=== PATIENT | female | born 1965 | race Caucasian/White ===

== ENCOUNTER 2023-03-08 16:21 | Outpatient (OUT) | payer BC, SELFPAY ==
--- NOTE | 2023-03-08 16:47 | XR_ITS ---
[facility] [place] [id number] Patient Name: JIMMY CLEANING MRN: [id number] date: 1965 Sex: F Assigned Patient Location: [facility] Current Patient Location: Accession/Order Number: [id number] Exam Date: 03/08/2023 16:38 Report Date: 03/09/2023 08:23 At the request of: MAYELA BURGOS Procedure: XR hip RT 2V w/ pelvis PROCEDURE: XR hip RT 2V w/ pelvis HISTORY: Pain in Right hip, M25.551 ; acute right hip pain since falling 2 weeks ago COMPARISON: None. FINDINGS: BONES:Questionable curvilinear lucency projecting through the femoral head which may represent fracture of the posterior rim of the acetabulum. Unremarkable femoral head. Mild narrowing of superior joint space consistent with degenerative changes. SOFT TISSUES:No visible soft tissue swelling. EFFUSION:None visible. OTHER: Negative. XR/XR hip RT 2V w/ pelvis IMPRESSION: 1. Possible nondisplaced fracture of the posterior rim of the right acetabulum. Follow-up with MRI of right hip if patient is able, otherwise CT of right hip. Electronically authenticated by: AGUSTÍN PATEL Date: 03/09/2023 08:23
== END 2023-03-08 16:22 | disposition home or self-care (01) ==
PROVIDERS: PCP Family Medicine; Visit Provider Nurse Practitioner Family
DX: M25.551 Pain in right hip (principal)
CPT/HCPCS: 73502

== ENCOUNTER 2023-03-09 11:30 | Outpatient (OUT) | payer BC, SELFPAY ==
--- NOTE | 2023-03-09 11:46 | CT_ITS ---
[address] [address] Patient Name: JIMMY CLEANING MRN: [id number] date: 1965 Sex: F Assigned Patient Location: CT Current Patient Location: CT Accession/Order Number: [id number] Exam Date: 03/09/2023 11:50 Report Date: 03/09/2023 12:47 At the request of: MAYELA BURGOS Procedure: CT hip RT wo con EXAMINATION: CT hip RT wo con HISTORY: Pain In Right Hip M25.551 ; possible right acetabular fracture on x-ray COMPARISON: XR hip right 03/08/2023 TECHNIQUE: Multi-planar CT images were created without and/or with IV contrast according to examination type. Dose reduction techniques were achieved by using automated exposure control and/or adjustment of mA and/or kV according to patient size and/or use of iterative reconstruction technique. FINDINGS: BONES: Mild/moderate narrowing of the superior aspect of the hip joint space and tiny periarticular degenerative osteophytes. No fracture, dislocation, or bone lesion. SOFT TISSUES: Negative. No visible soft tissue swelling. EFFUSION: None visible. OTHER: Negative. CT/CT hip RT wo con IMPRESSION: 1. No acute bone abnormality. Finding on today's right hip radiographs is secondary to summation of normal trabecula and vascular channels. 2. Mild degenerative joint disease. Electronically authenticated by: AGUSTÍN PATEL Date: 03/09/2023 12:47
== END 2023-03-09 11:31 | disposition home or self-care (01) ==
PROVIDERS: PCP Family Medicine; Visit Provider Family Medicine
DX: M25.551 Pain in right hip (principal); M16.11 Unilateral primary osteoarthritis, right hip
CPT/HCPCS: 73700

== ENCOUNTER 2024-10-17 07:02 | Outpatient (OUT) | payer BC, SELFPAY ==
--- OUTSIDE RECORDS SUMMARY | 2024-07-19 12:54 | XMS_ITS ---
Author Name Auto Generated Organization OHIP Care Team Providers Care Detailer Furniture Name Role Phone [facility] Attending Unavailable TARIK HERNANDEZ Primary Care Unavailable PROBLEMS DATE TYPE CONDITION / CODE ATTENDING STATUS [facility] 07/19/2024 Admitting Diagnosis Body mass index (BMI) 25.0-25.9, adult / Z68.25(ICD-10) [facility] 09/23/2023 Admitting Diagnosis Personal history of nicotine dependence / Z87.891(ICD-10) [facility] 09/23/2023 Admitting Diagnosis Body mass index (BMI) 24.0-24.9, adult / Z68.24(ICD-10) [facility] 06/16/2023 Admitting Diagnosis Other senior living (current) drug therapy / Z79.899(ICD-10) [facility] 06/16/2023 Admitting 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 / Z79.01(ICD-10) [facility] 04/22/2023 Admitting Diagnosis Paroxysmal atrial fibrillation (Multi) / I48.0(ICD-10) [facility] 04/22/2023 Admitting Diagnosis Personal history of transient ischemic attack (TIA), and 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 deficits / Z86.73(ICD-10) [facility] 04/22/2023 Admitting Diagnosis Essential (primary) hypertension / I10(ICD-10) [facility] 04/22/2023 Admitting Diagnosis Mixed hyperlipidemia / E78.2(ICD-10) [facility]ED[facility] No Procedure Records Found RESULTS ALLERGIES DATE TYPE / CODE NAME / CODE REACTION SEVERITY SOURCE SYSTEMIC/[id number]( SNOMED CT) NO KNOWN ALLERGIES [facility] ENCOUNTERS ADMIT/DISCHARGE ACCOUNT NUMBER ADMITTING ENCOUNTER CLASS LOCATION SOURCE 07/19/2024/ [id number] Ambulatory Building:[facility] [id number] [place] [address] Ambulatory [facility] ENCOUNTER GUARANTOR PAYER SUBSCRIBER SOURCE 07/19/2024 JIMMY PERLAES: [id number] [place], [place] [address]Uoj: () Primary Insurance:ZEHRA mendenhall Number: [id number] tive Date:2021-04-11 DANIEL FERGUSONB: [id number] [place] [place] [address]Rky: () [facility]
[2024-10-17 07:19] LABS: Hematocrit 44.7 % (36.0-48.0); Hemoglobin 15.0 g/dL (12.0-16.0); Immature Granulocytes Abs Auto 0.01 10^3/uL (0.00-0.03); Immature Granulocytes Pct Auto 0.1 % (0.0-0.5); Lymphocytes Absolute Auto 3.8 10^3/uL (1.2-3.8); Mean Corpuscular HGB Conc 33.6 g/dL (29.9-35.2); Mean Corpuscular Hemoglobin 31.0 pg (26.7-34.0); Mean Corpuscular Volume 92.4 fL (81.0-99.0); Platelet Count 423 10^3/uL (150-450); Red Blood Count 4.84 10^6/uL (4.20-5.40); White Blood Count 8.2 10^3/uL (4.0-11.0)
[2024-10-17 07:48] LABS: Alanine Aminotransferase 30 U/L (14-59); Anion Gap 13.6; Aspartate Amino Transferase 16 U/L (15-37); Blood Urea Nitrogen 13.0 mg/dL (7.0-18.0); Calcium 9.0 mg/dL (8.5-10.1); Carbon Dioxide 27.3 mmol/L (21.0-32.0); Chloride 105 mmol/L (98-107); Cholesterol 222 mg/dL (<=200); Estimated GFR (African America >60 (>=60 mL/min/1.73m^2); Estimated GFR (Non-African Ame >60 (>=60 mL/min/1.73m^2); Glucose 125 mg/dL (74-106); HDL Cholesterol 51 mg/dL (40-60); Potassium 3.9 mmol/L (3.5-5.1); Sodium 142 mmol/L (136-145); Triglycerides 257 mg/dL (<=150); VLDL CHOLESTEROL 51.4 mg/dL
== END 2024-10-17 07:03 | disposition home or self-care (01) ==
LOC: LAB 07:03
PROVIDERS: PCP Family Medicine; Visit Provider Internal Medicine Cardiovascular Disease
DX: E78.2 Mixed hyperlipidemia (principal); I48.0 Paroxysmal atrial fibrillation; I10 Essential (primary) hypertension
CPT/HCPCS: 36415; 80048; 80061; 84450; 84460; 85025